=== PATIENT | male | born 2005 | race Caucasian/White ===

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

== ENCOUNTER 2025-06-16 20:40 | Emergency (ER) | payer OTHER, SELFPAY ==
--- OUTSIDE RECORDS SUMMARY | 2025-06-16 20:43 | XMS_ITS | Clinical Summary ---
Author Organization [facility] Address [address] [place] [address] Care Team Providers Care Assistant Branch Manager Name Role Phone Glen Pereira MD Primary Care Provider [phone] Glen Pereira MD Unavailable Glen Pereira MD Unavailable Allergies No known active allergies Medications MedicationSigDispense QuantityRefillsLast FilledStart DateEnd DateStatus acetaminophen (TYLENOL) 325 mg tablet Take by mouth Every 4 hours as neededActive clindamycin (CLEOCIN-T) 1 % lotion Indications:Acne vulgarisApply to affected area 1 time a day in the morning 60 mL 6052Active tretinoin (RETIN-A) 0.1 % cream Indications:Acne vulgarisApply topically every night at bedtime 45 g 306/2Active ibuprofen (ADVIL;MOTRIN-IB) 200 mg tablet Take 400 mg by mouth every 4 to 6 hours as neededActive Active Problems ProblemNoted DateDiagnosed DateConcern about ynxbuj2307/01/2020 Overview (07/15/2020): Hx always taller than peers, with average age onset growth spurt. 07/02/20 CA= 14 8 Ped Endo clinic encounter: BA~ 14.5, Prl=7.4, IGF- 1=402(+0.39 SD for age). 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 PE not suggesting genetic syndrome associated with tall stature. No obvious disease process. Immunizations ImmunizationAdministration DatesNext JabLFeF9810/29/2010,05/30/2007,05/13/2006, 02/18/2006,2005HEP B, peds/adol05/30/2007,2005,2005 HIB,bhlrstuzwoy77/19/2007,05/13/2006,02/18/2006,2005HPV9003/03/2018, 2016Hep A, Ndgilfalcvk20/30/2008,05/30/2007INFLUENZA MULTIDOSE 6 MONTHS AND UP04/14/2022INFLUENZA SINGLE DOSE 0.5ML 6 MONTHS AND UP04/21/2023,04/13/2018 ,05/01/2016INFLUENZA(FLUMIST)INTRANASAL VACCINE 2 TO 49 YEARS05/08/2014IPV 10/29/2010,05/30/2007,02/18/2006,2005Influenza Vaccine,unspecified 04/12/2017,05/14/2015,04/18/2013,07/08/2010,05/18/2010,05/30/2007,06/20/2006, 05/13/2006MENINGOCOCCAL ACYW-TT(MENQUADFI)02/22/2022MMR10/29/2010,10/20/2006 Meningococcal B,recombinant (Trumenba)02/22/2023Meningococcal MCV4P (Menactra) 2016Pfizer COVID-19 BIVALENT Vaccine (Neff Cap) 12 YR and up05/07/2022 Pfizer COVID-19 MONOVALENT (Neff Top) 12 Years and up2Pfizer COVID-19 Vaccine (COMIRNATY) 12 Years And Up3Pfizer COVID-19 Vaccine(Purple Top) 12 Years and up12/05/2020,1Pneumococcal Conjugate, Unspecified 10/20/2006,05/13/2006,02/18/2006,2005TDAP10/19/20165150Jedtetscd87/28/2011, 10/20/2006 Family History Medical HistoryRelationCommentsSkin Cancer (non melanomatous)Maternal GrandmotherThyroid CancerMaternal Unclesurgery to removeRelationStatusComments Maternal GrandmotherMaternal Uncle Social History Tobacco UseTypesPacks/DayYears UsedDateSmoking Tobacco: NeverSmokeless Tobacco: NeverAlcohol UseStandard Drinks/WeekCommentsNo0 (1 standard drink = 0.6 oz pure alcohol)PHQ-2AnswerDate RecordedPHQ-9 Total (Adult)1205Abuse/Neglect AnswerDate RecordedMember of Clubs or OrganizationsNot on file10/01/2024Does the patient display any signs or symptoms of abuse or neglect?No10/01/2024Sexually ActiveBirth ControlPartnersCommentsNeverSex and Gender InformationValueDate RecordedSex Assigned at BirthNot on fileLegal TvfOvmb9203/08/2013 6:57 PM CDT Gender IdentityNot on fileSexual OrientationNot on file Last Filed Vital Signs Vital SignReadingTime TakenCommentsBlood Bwmgzrol477/72010/01/2024 1:16 PM CDT Ctbxm3779/31/2025 1:16 PM DAUTybekrpxtlz58.1 ??C (96.9 ??F)10/01/2024 1:16 PM CDTRespiratory Hyca750410/01/2024 1:16 PM CDTOxygen Bahuxpoeqn47%10/01/2024 1:16 PM CDTInhaled Oxygen Concentration--Srqend83.5 kg (184 lb)10/01/2024 1:16 PM CDT Dcttqy916.1 cm (6' 6)02/22/2023 10:48 AM CDTHead Rjtssvnubyvol77.5 cm07/02/2020 8:58 AM CSTBody Mass Index-- Plan of Treatment Health MaintenanceDue DateLast DoneCommentsHepatitis C Afuaivtpo33/18/2006HIV One Time Screening Ages 15-6504ipid Ftyclfqqw59Men B Vaccine (2 of 2 - Trumenba SCDM 2-dose series)/ovid-19 Vaccine ( season), 05/07/2022, 07/16/2021, Additional history existsInfluenza Vaccine (#1)51, 04/21/2023, 04/14/2022, Additional history existsDTAP,TDAP or TD Vaccine (7 - Td or Tdap) 7010/19/2016, 10/29/2010, 05/30/2007, Additional history exists Pneumococcal Vaccine (0-5yr; and At-risk 6-49yr)Nwkarebtd07/19/2007, 05/13/2006, 02/18/2006, Additional history existsHepatitis B AjapskkGbcjboeyt37/27/2007, 2005, 2005HPV UxxcghpMpjakuqee99/31/2018, 2016 Medical Devices ImplantedTypeAreaManufacturerDevice IdentifierShelf Expiration DateModel / Serial / LotScrew Juan T8 Stardr 2.7x14mm N 202.874 Ea1 - [id number] Implanted:Qty: 1 on 08/17/2022 by [facility] OtherRight: [employer] [id number] / / Plate Lcp Ss 7hl 2.7x67mm N 249.683 Ea1 - [id number] Implanted:Qty: 1 on 08/17/2022 by [facility]les [facility] OtherRight: [employer] [id number] / / Screw Juan T8 Stardr 2.7x14mm N 202.874 Ea1 - [id number] Implanted:Qty: 1 on 08/17/2022 by [facility]les [facility] OtherRight: [employer] [id number] / / Screw Juan T8 Stardr 2.7x14mm N 202.874 Ea1 - [id number] Implanted:Qty: 1 on 08/17/2022 by [facility]les [facility] Other[facility]: [employer] [id number] / / Screw Juan T8 Stardr 2.7x14mm N 202.874 Ea1 - [id number] Implanted:Qty: 1 on 08/17/2022 by [facility]les [facility] Other[facility]: [employer] [id number] / / Procedures Procedure NamePriorityDate/TimeAssociated DiagnosisCommentsLIPID PANELRoutine 02/18/2019 11:20 AM CDT Encounter for routine child health examination without abnormal findings from Last 3 Months or Most Recently Relevant to Health Maintenance Results * (ABNORMAL) LIPID PANEL (02/18/2019 11:20 AM CDT)ComponentValueRef RangeTest MethodAnalysis TimePerformed AtPathologist VnrsluyalTnfrouopkrp869<170 mg/dL 02/18/2019 11:39 AM [facility]ITALTriglyceride58<90 mg/dL 02/18/2019 11:39 AM [facility]ITALHDL37(L)>=45 mg/dL02/18/2019 11:39 AM [facility]ITALLDL60<=110 mg/dL02/18/2019 11:[address] [facility]imen (Source)Anatomical Location / Laterality Collection Method / VolumeCollection TimeReceived TimeBloodBLOOD SPECIMEN / UnknownVenipuncture / Fwecfoe7202/18/2019 11:20 AM CDT02/18/2019 11:20 AM CDT Narrative Authorizing ProviderResult TypeResult StatusMichelle Schimelpfenig DOLAB BLOOD Final ResultPerforming OrganizationAddressCity/State/ZIP CodePhone Number [facility] [address] [place] [address] from Last 3 Months or Most Recently Relevant to Health Maintenance Advance Directives For more information, please contact: [phone] * Full Code (Latest Code Status on File) Date ActivatedDate InactivatedComments08/17/2022 5:37 AM08/17/2022 6:21 PM Care Teams Team MemberRelationshipSpecialtyStart DateEnd Date Glen Pereira MD [address] [place] [address] PCP - GeneralFamily Medicine6/4/21 Glen Pereira MD [address] [place], [place] [address] PCP - Attributed Provider10/26/24 Glen Pereira MD [address] [place], [place] [address] PCP - Health Plan Member Attributed PCP05/29/25
[2025-06-16 21:24] VITALS: BP 144/96; PULSE 126; RESP 18; TEMP 37.6; O2SAT 95; BMI 23.9
[2025-06-16 22:19] LABS: PCR FLU A Negative PCR FLU A (Negative); PCR FLU B Negative PCR FLU B (Negative); PCR RSV Negative PCR RSV (Negative); SARS PCR* Negative SARS-CoV-2 (Negative)
== END 2025-06-16 22:57 | disposition left against medical advice (07) ==
PROVIDERS: Emergency Provider Family Medicine
DX: R05.9 Cough, unspecified (principal); R50.9 Fever, unspecified; R52 Pain, unspecified; Z53.21 Procedure and treatment not carried out due to patient leaving prior to being seen by health care provider
CPT/HCPCS: 87631